=== PATIENT | female | born 1940 | race Caucasian/White ===

== ENCOUNTER 2018-02-27 09:32 | Outpatient (CLI) | payer MEDICARE, MEDICAID ==
--- NOTE | 2018-02-27 11:55 | CT ---
CTA OF THE CHEST WITH CONTRAST CTA OF THE ABDOMEN WITH CONTRAST: Comparison: 11-21-12 History: Bilateral lower extremity weakness, numbness, and swelling for 6-8 months, getting worse. Pe ripheral vascular disease. Technique: Multiple contiguous axial images were obtained in a CTA of the chest and abdomen with cont rast. 3D sagittal and coronal MIP reformats were performed of the chest and abdomen. FINDINGS: Emphysematous changes are seen in the lungs. There is a small right pleural effusion and a trace left pleural effusion with adjacent atelectasis. No suspicious pulmonary masses are seen. Gallstones are seen in the gallbladder which also has a mildly thickened wall. The liver has a nodula r contour which may be secondary to cirrhosis. The spleen is enlarged measuring approximately 15.4 cm in length. There are hyper enhancing lesions in the central liver and right lobe of the liver which may represent small areas of JEREMY. These lesions are not definitely seen on the prior exam. A follow up CT of the abdomen per liver mass protocol in 3 months is recommended to ensure stability. However, liver masses cannot be entirely excluded. The kidneys, adrenal glands, and pancreas are unremarkable . No free air, free fluid, or stranding changes are seen in the abdomen. Visualized large and small b owel are unremarkable. No abdominal adenopathy is seen. The heart is normal in size without focal cardiac abnormality. No hilar or mediastinal lymph adenopat hy are seen. The aorta is normal in caliber. This includes the thoracic and abdominal aorta. There is no evidence of an aortic dissection. Diffuse atherosclerotic disease is seen in the descending aorta. The subclav aquilino arteries and common carotid arteries are patent. The celiac trunk, SMA, and ENZO are patent withou t significant atherosclerotic disease. There is a single renal artery on each side without significan t atherosclerotic disease. The chest and abdominal wall soft tissues are unremarkable. Degenerative changes are seen in the spin e. IMPRESSION: 1. No evidence of aneurysmal dilatation of the thoracic or abdominal aorta and no evidence of dissect ion of the aorta. 2. Moderate diffuse atherosclerotic disease within the descending aorta. 3. Cholelithiasis. 4. Bilateral pleural effusions. 5. Hyper enhancing region of the liver may represent areas of JEREMY, but liver masses cannot be entire ly excluded. POS: [facility]
[2018-02-27] MEDS ORDERED: Iopamidol 370 76% 100 ML VIAL ONE (14:46)
== END 2018-02-27 09:33 | disposition home or self-care (01) ==
LOC: CT 09:32
PROVIDERS: ATTEND Internal Medicine Cardiovascular Disease
DX: I73.9 Peripheral vascular disease, unspecified (principal); R09.89 Other specified symptoms and signs involving the circulatory and respiratory systems; I70.0 Atherosclerosis of aorta; K80.20 Calculus of gallbladder without cholecystitis without obstruction; J90 Pleural effusion, not elsewhere classified
CPT/HCPCS: 71275; 74175

== ENCOUNTER 2018-07-18 10:59 | Outpatient (CLI) | payer MEDICARE, MEDICAID ==
--- NOTE | 2018-07-18 13:21 | RAD ---
CHEST TWO VIEWS: History: Chest pain. Comparison: 2010 FINDINGS: There is an abnormal nodular density projecting over the right lower lobe. Chronic interstitial lung markers in the lung bases. IMPRESSION: Abnormal nodular density projecting in the right lower lobe. Recommend further characterization with CT of the chest. Abdomen and pelvic CT may also be beneficial given the patient's history of cirrhosi s. POS: [facility]
== END 2018-07-18 11:00 | disposition home or self-care (01) ==
LOC: RAD 10:59
PROVIDERS: ATTEND Internal Medicine Pulmonary Disease
DX: R06.00 Dyspnea, unspecified (principal); J98.4 Other disorders of lung
CPT/HCPCS: 71046

== ENCOUNTER 2018-08-09 11:57 | Outpatient (CLI) | payer MEDICARE, MEDICAID | END 2018-08-09 11:58 | disposition home or self-care (01) | LOC: BICMAMMO 11:57 | PROVIDERS: ATTEND Internal Medicine Geriatric Medicine | DX: Z12.31 Encounter for screening mammogram for malignant neoplasm of breast (principal); R92.1 Mammographic calcification found on diagnostic imaging of breast | CPT/HCPCS: 77063; 77067 ==

== ENCOUNTER 2018-08-31 07:28 | Outpatient (CLI) | payer MEDICARE, MEDICAID ==
--- NOTE | 2018-08-31 10:12 | CT ---
CT OF THE ABDOMEN WITH AND WITHOUT CONTRAST: INDICATION: History of cirrhosis of the liver with abnormality seen on a CTA examination from [facility] . TECHNIQUE: Multiple CT images were obtained of the abdomen with and without contrast utilizing a liver mass prot ocol. Comparisons are made with a prior CTA of the chest and abdomen dated 02/27/2018. FINDINGS: There is hyperenhancing mass within segment 5 of the right hepatic lobe measuring 2.1 cm. There is a n additional hyperenhancing right hepatic lobe mass measuring 2.1 cm on image 19 of series 4. Findin gs are suspicious for hepatocellular malignancy. There are enlarged lymph nodes within the periportal and portocaval regions. One of the largest is s een within the portocaval region measuring 1.8 cm. There are numerous gallstones of the gallbladder. There is splenomegaly present. There are mild par aesophageal varicosities. There is recanalization of the umbilical vein. There is mild ascites. Th ere are severe vascular calcifications of the abdominopelvic vasculature. Adrenal glands and kidneys appear within normal limits. There is a small bilateral pleural effusion, left greater than right with bibasilar atelectasis. There is scattered degenerative and osteoarthritic change. IMPRESSION: 1. Hyperenhancing lesions of the right hepatic lobe and background of cirrhosis is highly suspicious for hepatocellular carcinoma. These are new from a comparison examination dated 03/21/2017 from [facility]. There are enlarged lymph nodes within the portocaval and periportal region wh ich appear stable in size from the 03/21/2017 examination and may have been related to cirrhosis. Turner lina, a component of malignant lymphadenopathy cannot be entirely excluded. 2. Findings of portal hypertension. 3. Cholelithiasis. 4. Small pleural effusions, left greater than right. POS: [facility]
== END 2018-08-31 07:29 | disposition home or self-care (01) ==
LOC: BICCT 07:28
PROVIDERS: ATTEND Internal Medicine Gastroenterology
DX: K74.60 Unspecified cirrhosis of liver (principal); R39.89 Other symptoms and signs involving the genitourinary system; I25.10 Atherosclerotic heart disease of native coronary artery without angina pectoris; K80.20 Calculus of gallbladder without cholecystitis without obstruction; J90 Pleural effusion, not elsewhere classified; K76.6 Portal hypertension; K76.9 Liver disease, unspecified
CPT/HCPCS: 74170

== ENCOUNTER 2018-12-05 11:58 | Inpatient (IN) | payer MEDICARE, MEDICAID ==
[2018-12-05] MEDS ORDERED: Heparin 10,000 UNITS/ 10 ML VIAL ONE (12:00)
[2018-12-05 13:52] LABS: ALT (SGPT) 52 U/L (8-55); AST (SGOT) 49 U/L (5-34); Albumin 1.8 g/dL (3.4-4.8); Alkaline Phosphatase 147 U/L (40-150); Anion Gap 19 mmol/L (10-20); BUN (Urea Nitrogen) 54 mg/dL (9.8-20.1); Calc. Creatinine Clearance 17 mL/min (70-130); Calcium 8.5 mg/dL (7.8-10.44); Carbon Dioxide 13 mmol/L (23-31); Chloride 92 mmol/L (98-107); Estimated GFR-MDRD 18; Globulin 3.5 g/dL (2.4-3.5); Glucose 77 mg/dL (83-110); Potassium 6.2 mmol/L (3.5-5.1); Protein, Total 5.3 g/dL (6.0-8.3)
[2018-12-05 13:57] LABS: Sodium 118 mmol/L (136-145)
[2018-12-05 14:17] LABS: Hemoglobin 13.1 g/dL (12.0-16.0); Mean Corpuscular HGB CONC 32.3 g/dL (32.0-36.0); Mean Corpuscular Hemoglobin 33.5 pg (27.0-31.0); Mean Platelet Volume 7.6 fL (7.4-10.4); Platelet Count 66 thou/uL (130-400); RBC Distribution Width 16.4 % (11.5-14.5); Red Blood Cell (RBC) Count 3.91 mill/uL (4.20-5.40); White Blood Cell (WBC) Count 23.4 thou/uL (4.8-10.8)
[2018-12-05 14:18] LABS: Anisocytosis SLIGHT = 6-15 cells (100X) (0-5/hpf); Band 29 % (5-11); Lymphocytes 3 % (21-51); MDiff Complete? YES; Macrocytosis SLIGHT = 6-15 cells (100X) (0-5/hpf); Monocytes 4 % (0-10); Neutrophil 64 % (42-75); Platelet Morphology Comment Appears Decreased; Polychromasia SLIGHT = 2-3 cells (100X) (0-2/hpf); Toxic Granulation SLIGHT; Vacuoles SLIGHT
[2018-12-05] MEDS ORDERED: Morphine 4 MG/ML VIAL SLOW IVP PRN ×2 (14:20→20:02)
[2018-12-05] MEDS ORDERED: Ondansetron ODT 8 MG TAB PO PRN (14:23)
[2018-12-05] MEDS ORDERED: Prochlorperazine Maleate 5 MG TAB PO PRN (14:39)
[2018-12-05] MEDS ORDERED: Morphine ER 15 MG TAB PO PRN (15:43)
[2018-12-05] MEDS: Cefepime 1 GM in Sodium Chloride 0.9% 100 ML IVPB SCH (16:12)
[2018-12-05] MEDS: Sodium Chloride 0.9% 1,000 ML IV SCH (16:14)
[2018-12-05 16:16] VITALS: BP 101/58
[2018-12-05] MEDS ORDERED: Vancomycin HCl 1 GM in Premix Bag 1 BAG IVPB SCH (17:00)
--- NOTE | 2018-12-05 17:11 | RAD ---
FRONTAL VIEW CHEST: Date: 12/05/18 INDICATION: Hypoxemia. FINDINGS: There is abnormal left basilar density. Diffuse bilateral interstitial opacities are present. There i s enlargement of the cardiac silhouette and prominence of the pulmonary vasculature. IMPRESSION: 1. Abnormal left basilar density, which may be on the basis of pleural fluid with adjacent atelectas is and/or pneumonia. 2. Probable bilateral interstitial edema related to CHF. Recommend imaging follow-up with 2 view chest series to confirm resolution of findings. POS: [facility]
[2018-12-05] MEDS ORDERED: Lidocaine 1% (PF) 30 ML VIAL ONE (17:19)
[2018-12-05] MEDS ORDERED: Lidocaine 1% w/Epinephrine 1:100K 20 ML VIAL ONE (17:20)
[2018-12-05] MEDS ORDERED: Sodium Bicarb 50 MEQ/50 ML VIAL IVP SCH ×2 (17:30→18:30)
--- NOTE | 2018-12-05 17:32 | CON ---
DATE OF CONSULTATION: 12/05/2018 TYPE OF CONSULTATION: Nephrology consultation REASON FOR CONSULTATION: Hyperkalemia, cirrhosis, and acute renal failure. HISTORY OF PRESENT ILLNESS: An 78-year-old female, who is being treated for hepatocellular carcinoma with no records available, presented to the hospital hypotensive and in sepsis. The patient was hyperkalemic yesterday as well, has had acute renal failure, which has progressed today, so I was consulted. The patient initially was reported to be possibly undergoing hospice, but at this time, the patient wants everything done and wants to live for a very long time. The patient is a very poor historian. PAST MEDICAL HISTORY: Significant for rheumatoid arthritis, history of hepatocellular carcinoma, history of cirrhosis, history of bilateral pleural effusions with possible mets, chronic hyponatremia. SOCIAL HISTORY: No alcohol or drug use. FAMILY HISTORY: Negative for ESRD. ALLERGIES: REVIEWED. HOME MEDICATIONS: List reviewed. REVIEW OF SYSTEMS: Unreliable. PHYSICAL EXAMINATION: GENERAL: The patient is awake and alert. VITAL SIGNS: Afebrile. Pulse 90, breathing 16, blood pressure was 100/60. GENERAL APPEARANCE AND MENTAL STATUS: Fair. HEAD/NECK: Normocephalic. Atraumatic. EYES: EOMI. No deformity. EARS: Clear. No ulcers. NOSE: Intact. No lesions. MOUTH: Clear. No discharge. THROAT: Clear. No exudate. LUNGS: Clear. No crackles. CARDIAC: S1, S2. No rub. ABDOMEN: Benign. Bowel sounds positive. GENITALIA/RECTUM: Elizalde absent. BACK/EXTREMITIES: Edema 0+. NEUROLOGICAL: Alert and motor intact. SKIN: LYMPHATICS: The patient is on oxygen. LABORATORY DATA: Lab shows sodium 119, creatinine 2.7. IMPRESSION: 1. Acute kidney injury with chronic kidney disease due to hypotension and possible sepsis. Recommend gentle hydration. 2. Hyperkalemia. Plan dialysis. 3. Metabolic acidosis. Plan dialysis. Overall prognosis is poor. The patient does not have any family members available. Job ID: [id number]
[2018-12-05] MEDS ORDERED: Sodium Chloride 0.9% 250 ML IV SCH (18:00)
[2018-12-05] MEDS ORDERED: Calcium Gluc 4.6 MEQ/10 ML (100 MG/ML) SLOW IVP SCH (18:30)
[2018-12-05] MEDS ORDERED: Sodium Bicarb 50 MEQ/50 ML Abboject 8.4% SYRINGE IVP SCH (19:00)
[2018-12-05] MEDS ORDERED: Norepinephrine 8 MG/0.9% NS 250 ML ONE (19:09)
[2018-12-05 19:24] LABS: HBSAg Index 0.18 S/CO (0-0.99); Hep B Surf Ag Non-Reactive S/CO (NonReactive)
[2018-12-05 19:25] LABS: Free T4 (Free Thyroxine) 0.74 ng/dL (0.70-1.48); Thyroid Stimulating Hormone 5.8796 uIU/mL (0.35-4.94)
[2018-12-05] MEDS ORDERED: Sodium Chloride 0.9% 250 ML 250 ML IVPB SCH (19:30)
--- NOTE | 2018-12-05 21:15 | CON ---
DATE OF CONSULTATION: 12/05/2018 ADMITTING AND MANAGING PHYSICIAN: Maricel Flanagan MD, Oncology Service. PURPOSE OF CONSULTATION: Medical management. CHIEF COMPLAINT: 1. Shortness of breath. 2. Generalized weakness. 3. Jaundice. HISTORY OF PRESENT ILLNESS: The patient is an 78-year-old female, who was recently diagnosed with hepatocellular carcinoma and was started on new medications, lenvatinib on the 24 of November. The patient was seen by Dr. Flanagan, I believe yesterday and today, she sent her for direct admission for above-mentioned problems. The patient was found to be hyponatremic and we were consulted for medical management of her medical problems. Also, she has been taking some Tylenol No.4 and tramadol which can contribute to hepatotoxicity. She denies any fever or cough. She denies any chest pain. PAST MEDICAL HISTORY: 1. Hepatocellular carcinoma. 2. Arthritis. 3. Chronic obstructive pulmonary disease. 4. Liver disease. 5. Hemorrhoids. PAST SURGICAL HISTORY: 1. Tubal ligation. 2. Selverstone clamp for aneurysm. SOCIAL HISTORY: She is a former smoker. She denies any illicit drug use. She does not use much of alcohol. Surrogate decision maker, Malka Ramos, her daughter. ALLERGIES: NONE. CURRENT MEDICATIONS: 1. Ciclopirox 0.77% topical cream. 2. Compazine 10 mg tablets. 3. Furosemide 20 mg once a day. 4. Chloroquine 200 mg tablets. 5. Lenvatinib 4 mg capsules. 6. Zofran 8 mg p.r.n. 7. Spironolactone 50 mg tablet. 8. Symbicort 160/4.5. FAMILY HISTORY: Noncontributory to this case. REVIEW OF SYSTEMS: No night sweats or weight loss. Positive weakness. Positive fatigue. Positive bilateral lower extremity. Negative for chest pain or palpitations. Negative for diarrhea or bleeding. Negative for rashes or itching. Positive for bruising. Negative for anxiety or depression. Negative for change in vision or eye irritation. Positive for ringing in the ears. Positive for shortness of breath as above. PHYSICAL EXAMINATION: VITAL SIGNS: Blood pressure is initially 66/41, temperature is 97.7, pulse is 91, respiratory rate is 20, and O2 saturation is 84 on room air. The patient is placed on 2 L of nasal cannula and she was given normal saline bolus for her hypotension. HEENT: Head is atraumatic and normocephalic. Sclerae anicteric. Pupils are responding to light properly. Conjunctivae are pale. Oral mucosa is dry. NECK: Supple. LUNGS: Breath sounds diminished at both bases. No wheezing. HEART: S1 and S2 somewhat distant. No S3. No S4. ABDOMEN: Distended, mildly tender to touch in the epigastric area. I think I palpate liver, which is somewhat enlarged and tender to palpation. EXTREMITIES: 2+ peripheral edema similar bilaterally in both lower extremities. NEUROLOGICAL: She follows my commands. She moves her all 4 extremities. There is no any motor deficits. NEUROLOGIC: Nonfocal. LABORATORY DATA: White count of 20.3, hemoglobin 13.1, hematocrit 39.5, MCV 100.6, platelets 61,000. No images since this is a direct admission. IMPRESSION: 1. Fatigue, generalized weakness, most likely related to fluid retention. Apparently reviewed the message from the lab that sodium is down to 118, as a preliminary reading. 2. Hyperbilirubinemia in the setting of hepatocellular carcinoma. 3. Hepatocellular carcinoma, multifocal. 4. Elevated white count of unclear etiology at this point. 5. Thrombocytopenia, again this could be related to her current chemotherapy. RECOMMENDATION: Followup with full panel of CBC, procalcitonin to find out more about the current status. We gave her a bolus of normal saline. Her blood pressure is doing significantly better now. Also, she showed some hypoxemia. We will obtain chest x-ray and do further diagnostic workup on her condition. We will restrict her fluid intake to 1000 mL per 24 hours. We will get nephrology consultation and the case was discussed with Dr. Conrad. We will start her on cefepime for possible sepsis. We will obtain urinalysis and will follow up with you. Job ID: [id number]
[2018-12-05 23:24] LABS: Lactic Acid 4.4 mmol/L (0.5-2.2)
[2018-12-05 23:49] LABS: Potassium 4.6 mmol/L (3.5-5.1)
[2018-12-05 23:50] LABS: Osmolality, Urine 393 mOsm/kg (300-900)
[2018-12-06 00:05] LABS: Potassium, Urine 49.8 mmol/L; Sodium, Urine Less than 20 mmol/L (Not Available)
--- NOTE | 2018-12-06 00:54 | OP ---
DATE OF PROCEDURE: 12/05/2018 PREOPERATIVE DIAGNOSES: Hepatocellular carcinoma, end-stage hepatic disease, acute renal failure, hyperkalemia, severe acidosis. POSTOPERATIVE DIAGNOSES: Hepatocellular carcinoma, end-stage hepatic disease, acute renal failure, hyperkalemia, severe acidosis. PROCEDURE: Right femoral vein triple-lumen catheter, large bore (Trialysis catheter was desired but the hospital did not have these in stock in the ER nor in ICU). ANESTHESIA: 1% xylocaine. DESCRIPTION OF PROCEDURE: The patient at bedside. Seldinger technique was used to place the large-bore triple-lumen catheter for dialysis access. The patient tolerated the procedure well. Catheter was secured with 2 interrupted sutures of 3-0 silk. J-wire removed. Each port aspirated blood, flushed with heparinized saline solution. Sterile dressings applied. Job ID: [id number]
--- NOTE | 2018-12-06 01:19 | HP ---
HISTORY OF PRESENT ILLNESS: Nalini Lima is an 78-year-old female with hepatocellular carcinoma, admitted today for deteriorating renal function and Dr. Conrad was consulted. The patient has been on palliative hospice care, but with acute renal failure and hyperkalemia. Family has decided to proceed with a dialysis trial. She hopes to interact with family socially for some upcoming events. She has history of cirrhosis, bilateral pleural effusions, metastatic disease, and hyponatremia. The patient has been hypotensive earlier. She is a DNR. SOCIAL HISTORY: Tobacco, none. Alcohol, none. FAMILY HISTORY: Negative. ALLERGIES: NONE. MEDICATIONS: 1. Compazine. 2. Zofran. 3. Lenvima. 4. Lasix. 5. Plaquenil. 6. Spironolactone. PAST SURGICAL HISTORY: Cataract surgery. PAST MEDICAL PROBLEMS,: Osteoporosis, rheumatoid arthritis. She did use tobacco in the past, but cessation over 2 years ago. PHYSICAL EXAMINATION: VITAL SIGNS: 5 foot, 232 pounds, 24 BMI, 97.7, 101/58, 87, 18, blood pressure 66/41 earlier. HEENT: The patient is jaundiced. Sclerae anicteric. CARDIAC: Regular rate and rhythm. ABDOMEN: Soft, distended, possible fluid wave. EXTREMITIES: Unremarkable. Stronger left femoral pulse than right. PHYSICAL EXAMINATION: Bilirubin 8, AST and ALT are 49 and 52, alkaline phosphatase 147. Sodium 118, cortisol 32. White count 23, hemoglobin 13. ASSESSMENT AND PLAN: Hepatocellular carcinoma with renal failure with potassium 6.2, BUN and creatinine are 54 and 2.51, GFR 18. We will plan placement of femoral dialysis catheter. If they decide to have a cuffed tunneled dialysis catheter, we will plan that tomorrow or the next day or two. Overall prognosis is poor. The patient is severely acidotic with CO2 of 13. Job ID: [id number]
[2018-12-06 01:22] LABS: Lactic Acid 4.1 mmol/L (0.5-2.2)
[2018-12-06] MEDS: Sodium Chloride 0.9% 1,000 ML IV SCH ×2 (01:53→16:49)
[2018-12-06] MEDS: Norepinephrine 8 MG/250 ML BAG IVPB PRN ×2 (03:13→07:53)
[2018-12-06] MEDS: Cefepime 1 GM in Sodium Chloride 0.9% 100 ML IVPB SCH (03:13)
--- NOTE | 2018-12-06 03:14 | CON ---
DATE OF CONSULTATION: 12/05/2018 This is a 35 minutes critical care time. CONSULTING PHYSICIAN: Don Rothman MD REASON FOR CONSULTATION: Hypotension. HISTORY OF PRESENT ILLNESS: An 78-year-old female who is currently being treated by Dr. Falnagan for hepatocellular carcinoma. She came to the hospital today for hypotension and presumed sepsis. She is a very poor historian and cannot tell me when the last time she got chemotherapy. She was apparently hyperkalemic. At the time I am seeing her, she is starting hemodialysis through a right femoral vein catheter. PAST MEDICAL HISTORY: 1. Hepatocellular carcinoma. 2. Cirrhosis. 3. Bilateral effusions. 4. Chronic hyponatremia. 5. Rheumatoid arthritis. PAST SURGICAL HISTORY: She has a MediPort. SOCIAL HISTORY: Nonsmoker. Does not consume alcohol. FAMILY MEDICAL HISTORY: Unremarkable. ALLERGIES: ASPIRIN. REVIEW OF SYSTEMS: The patient currently will not give me anything in the way of information. PHYSICAL EXAMINATION: VITAL SIGNS: Blood pressure is running about 137/38, pulse 100, respirations 18, O2 saturation 98%. GENERAL: This is an ill-appearing female who appears in no overt respiratory distress this time. HEENT: Her sclerae are icteric. Face has generalized jaundice. CARDIOVASCULAR: S1 and S2. Tachycardic. LUNGS: Fairly clear anteriorly. ABDOMEN: Slightly tender to palpation in the mid epigastric region. EXTREMITIES: Jaundiced. LABORATORY DATA: Sodium 118, potassium 6.2, chloride 92, CO2 of 13, BUN 54, creatinine 2.5, glucose 77, lactate 8.2, albumin 1.8, TSH 5.8, total bilirubin 8.0. White blood cell count 23.4, hematocrit 40.6, and platelet count 66. Hepatitis B surface antigen test was negative. A chest x-ray demonstrates diffuse interstitial type changes. There may be a small left pleural effusion. ASSESSMENT: 1. Acute kidney injury with hyperkalemia. 2. Sepsis. 3. Hyponatremia. 4. Hepatocellular carcinoma. 5. Severe metabolic acidosis. PLAN: The patient is currently on dialysis for the hyperkalemia and acidosis. IV antibiotics have been written for her. She needs some back pain controlled with morphine as needed. I think we need to focus more on comfort. She does have a DNAR order on the chart. I think her prognosis is extremely poor, even with aggressive intervention. Job ID: [id number]
[2018-12-06 04:56] VITALS: TEMP 98.5
[2018-12-06 06:14] LABS: ALT (SGPT) 52 U/L (8-55); AST (SGOT) 56 U/L (5-34); Albumin 1.7 g/dL (3.4-4.8); Alkaline Phosphatase 169 U/L (40-150); Anion Gap 14 mmol/L (10-20); BUN (Urea Nitrogen) 34 mg/dL (9.8-20.1); Bilirubin, Total 8.7 mg/dL (0.2-1.2); Calc. Creatinine Clearance 30 mL/min (70-130); Carbon Dioxide 21 mmol/L (23-31); Chloride 95 mmol/L (98-107); Estimated GFR-MDRD 36; Globulin 3.5 g/dL (2.4-3.5); Glucose 68 mg/dL (83-110); Potassium 5.3 mmol/L (3.5-5.1); Protein, Total 5.2 g/dL (6.0-8.3); Sodium 125 mmol/L (136-145)
[2018-12-06 06:24] LABS: Band 13 % (5-11); Hemoglobin 14.6 g/dL (12.0-16.0); Lymphocytes 4 % (21-51); MDiff Complete? YES; Mean Corpuscular HGB CONC 34.1 g/dL (32.0-36.0); Mean Corpuscular Hemoglobin 34.9 pg (27.0-31.0); Mean Platelet Volume 9.1 fL (7.4-10.4); Monocytes 1 % (0-10); Neutrophil 82 % (42-75); Nucleated RBC 1 % (0); Platelet Count 45 thou/uL (130-400); Platelet Morphology Comment Appears Decreased; RBC Distribution Width 16.8 % (11.5-14.5); RBC Morphology Normal; White Blood Cell (WBC) Count 20.1 thou/uL (4.8-10.8)
--- NOTE | 2018-12-06 09:23 | PRG ---
DATE OF SERVICE: 12/06/2018 SUBJECTIVE: This patient was seen in the ICU this morning. She appears quite miserable from pain. She is requiring Levophed at about 35 mcg/minute to sustain. OBJECTIVE: VITAL SIGNS: Blood pressure of 82/47, pulse 119, O2 sats 98%. HEENT: Generalized jaundice is apparent throughout her eyes and skin. She has some bleeding in her mouth. LUNGS: Her breath sounds are clear CARDIAC: Tachycardic. ABDOMEN: Distended. EXTREMITIES: No edema. LABORATORY DATA: Sodium 125, potassium 5.3, chloride 95, CO2 of 21, BUN 34, creatinine 1.4, glucose 68. White blood cell count 20, hematocrit 43.9, and platelet count 45. ASSESSMENT: 1. Hepatocellular carcinoma. 2. Acute renal failure. 3. Sepsis versus overt liver failure from hepatocellular carcinoma. 4. Severe metabolic acidosis. PLAN: I really think the focus should be on comfort as I do not think she is liable to improve with current intervention. Job ID: [id number]
--- NOTE | 2018-12-06 09:26 | ULT ---
ABDOMINAL ULTRASOUND COMPLETE: HISTORY: Hepatocellular carcinoma, hyponatremia. COMPARISON: 08/31/[address] FINDINGS: Very abnormal coarse echogenicity throughout the liver with contour nodularity, evidence for cirrhosi s. Poorly circumscribed slightly hyperechoic mass measuring approximately 1.3 x 2.6 cm in the right lobe of the liver which certainly could represent hepatocellular carcinoma. Numerous shadowing galls tones noted in the gallbladder with gallbladder wall thickening up to 0.7 cm. Evidence for ascites a nd bilateral pleural effusions. No significant intrahepatic ductal dilatation or common duct dilatat ion. Visualized pancreas, IVC, and aorta are unremarkable. Spleen is borderline in size. The kidne ys show no renal hydronephrosis or perinephric process. IMPRESSION: Markedly abnormal liver echogenicity with nodularity and at least 1 poorly circumscribed right lobe o f liver mass, evidence for sclerosis and probable hepatocellular carcinoma. Bilateral pleural effusi ons and minimal ascites. Multiple gallstones with abnormal gallbladder wall thickening, but no ducta l dilatation. POS: [facility]
--- NOTE | 2018-12-06 10:47 | PRG ---
DATE OF SERVICE: 12/06/2018 SUBJECTIVE: An 78-year-old lady being seen for acute kidney injury urgent hemodialysis due to hyperkalemia. The patient remains confused and is very feeble. OBJECTIVE: See above. CONSTITUTIONAL: Awake, alert, in mild to moderate acute distress. VITAL SIGNS: Afebrile. Pulse 80, breathing 16, blood pressure 82/47. GENERAL APPEARANCE AND MENTAL STATUS: Fair. HEAD/NECK: Normocephalic. Atraumatic. EYES: EOMI. No deformity. EARS: Clear. No ulcers. NOSE: Intact. No lesions. MOUTH: Clear. No discharge. THROAT: Clear. No exudate. LUNGS: Clear. No crackles. CARDIAC: S1, S2. No rub. ABDOMEN: Benign. Bowel sounds positive. GENITALIA/RECTUM: Elizalde absent. BACK/EXTREMITIES: Edema 0+. NEUROLOGICAL: The patient is confused. SKIN: LYMPHATICS: LABORATORY DATA: Labs show potassium 5.3, creatinine 1.4. ASSESSMENT AND PLAN: 1. Acute kidney injury with severe metabolic acidosis. The patient remains anuric. Discussed risks versus benefits of renal replacement therapy in the setting of severe hypotension and sepsis. The family opted out not to dialysis after one palliative dialysis treatment for hyperkalemia and acidosis. 2. Hypotension and sepsis. 3. Anemia, stable. 4. Medication based on glomerular filtration rate appropriate. I will sign off on this patient. Please reconsult as needed. Prognosis is very poor. Job ID: [id number]
[2018-12-06 12:15] VITALS: BMI 24.6
[2018-12-06] MEDS ORDERED: Albumin 25% 25 GM/100 ML BOT IVPB SCH (12:24)
[2018-12-06] MEDS ORDERED: Morphine 10 MG/ML VIAL SLOW IVP PRN (12:43)
[2018-12-06] MEDS ORDERED: Lorazepam 2 MG/ML VIAL SLOW IVP PRN ×2 (12:44)
--- NOTE | 2018-12-06 14:13 | PQF ---
DATE: 12-06-18 ATTN: DR. CHARLI BLAND Please exercise your independent, professional judgment in responding to the clarification form. Clinical indicators are provided on the bottom of this form for your review Please check appropriate box(es): [ ] Sepsis [ ] SIRS due to non-infectious process (please specify etiology) [ ] with organ dysfunction [ ] without organ dysfunction [ ] Severe sepsis with acute organ dysfunction of: (Examples: acute kidney failure, other) [ ] Other diagnosis [ ] Unable to determine In addition, please specify: Present on Admission (POA): [ ] Yes [ ] No [ ] Unable to determine For continuity of documentation, please document condition throughout progress notes and discharge summary. Thank You. CLINICAL INDICATORS - SIGNS / SYMPTOMS / LABS CONSULT NOTE DR. BELTRÁN 12-05-18: BETO WITH HYPERKALEMIA, SEPSIS, HYPONATREMIA, HEPATOCELLULAR CARCINOMA, SEVERE METABOLIC ACIDOSIS PN DR. BLAND 12-05-18: WE WILL START HER ON CEFEPIME FOR POSSIBLE SEPSIS, THROMBOCYTOPENIA CONSULT NOTE DR. ESTRELLA 12-05-18: BETO WITH CKD DUE TO HYPOTENSION AND POSSIBLE SEPSIS. RECOMMEND GENTLE HYDRATION. WBC: 12-05-18: 23.4 12-06-18: 20.1 BANDS: 12-05-18: 29 12-06-18: 13 LACTIC ACID: 12-05-18: 8.2, 3.7, 4.4 12-06-18: 4.1 BP: 12-05-18: 66/41 12-06-18: 87/54, 95/46, 99/48, 73/41, 72/43 HR: 12-06-18: 110, 112, 118, 121, 126, 126 RISK FACTORS: CONSULT NOTE DR. BELTRÁN 12-05-18: BETO WITH HYPERKALEMIA, SEPSIS, HYPONATREMIA, HEPATOCELLULAR CARCINOMA, SEVERE METABOLIC ACIDOSIS PN DR. BLAND 12-05-18: WE WILL START HER ON CEFEPIME FOR POSSIBLE SEPSIS, THROMBOCYTOPENIA ADVANCED AGE TREATMENTS: PN DR. BLAND 12-05-18: WE WILL START HER ON CEFEPIME FOR POSSIBLE SEPSIS, MAR: IVF, MAXIPIME IV, VANCOMYCIN (This form is maintained as a part of the permanent medical record) 2014 [employer]. All Rights Reserved [email or web address] Office: [phone] [facility]
[2018-12-06] MEDS: Morphine 4 MG/ML VIAL SLOW IVP PRN ×2 (16:09→19:28)
--- NOTE | 2018-12-06 16:16 | PRG ---
DATE OF SERVICE: 12/06/2018 SUBJECTIVE: The patient is seen and examined at the bedside. The family is present in the room, her son and the daughter. Yesterday, the patient was transferred to intensive care unit because she was still hypotensive despite of IV fluids and IV antibiotics and she asked Dr. Conrad to have everything done and he offered her a dialysis, so she was dialyzed last night. This morning, she is still hypotensive despite of a high dose of vasopressors and despite of IV fluids. We gave her additional 500 mL of normal saline, but her blood pressure did not improve. OBJECTIVE: VITAL SIGNS: Blood pressure is 74/40, heart rate is in 120s, respiratory rate is 13, O2 saturation is 99% on room air. GENERAL: She is examined and she looks sick. She kind of moans when I listen to her. HEENT: Her sclerae nonicteric. Conjunctivae palish. LUNGS: Breath sounds diminished at both bases. HEART: S1, S2. Tachycardic. No S3. No S4. ABDOMEN: Somewhat distended, but not tender. EXTREMITIES: 2+ peripheral edema similar bilaterally on both lower extremities. LABORATORY DATA: Showed white count of 20.1, hemoglobin of 14.6, hematocrit 42.9, and platelet count is 45,000. Chemistry showed sodium of 125, potassium 5.3, chloride 95, CO2 of 21, BUN 34, creatinine 1.42. Lactic acid 8.2, then 4.4, then 4.1. Total bilirubin 8.7, ALT 169, AST 52, total protein 5.2, albumin 1.7, cortisol 32.1, free T4 0.74, free T3 1.22. Third generation TSH 5.8. IMPRESSION: 1. Sepsis with septic shock, hypotension, lack of response despite of IV fluids, IV antibiotics, and vasopressors. 2. Acute renal failure. 3. Hepatocellular carcinoma. 4. Severe metabolic acidosis. 5. Hyperbilirubinemia secondary to hepatocellular carcinoma. 6. Chronic obstructive pulmonary disease. 7. Thrombocytopenia, most likely related to her current chemotherapy. DISCUSSION: I met with Dr. Conrad and the family members, the daughter and the son and a friend of the patient. We had a long discussion about her poor prognosis, lack of response to treatment and they understand the severity of the problem. They agree to continue supportive care. They requested to see Dr. Flanagan, the primary admitting MD on this case and we will continue current regimen with supportive care with IV vasopressor, IV fluids, and IV antibiotics, but the prognosis is very poor as mentioned above and most likely she will in the next 24 to 48 hours. Job ID: [id number]
--- NOTE | 2018-12-06 16:49 | CON ---
DATE OF CONSULTATION: REASON FOR CONSULT: Hepatocellular carcinoma. HISTORY OF PRESENT ILLNESS: Ms. Lima is an 78-year-old female with multifocal hepatocellular carcinoma. She has been taking lenvatinib. She presented to our clinic yesterday. She had weight loss, weakness, fatigue, back pain and jaundice. She was admitted for further evaluation and treatment. She did have a temporary dialysis catheter placed and received one session of dialysis. Overnight, she continued to decline and is currently on Levophed drip in the ICU. The patient has been complaining overnight of back pain and has been receiving morphine. She also is on antibiotics. The patient is currently obtunded and not arousable. She is a DNR. PAST MEDICAL HISTORY: 1. Hepatocellular carcinoma. 2. Arthritis. 3. COPD. 4. Liver disease and cirrhosis. 5. Hemorrhoids. PAST SURGICAL HISTORY: 1. Tubal ligation. 2. Cerebral aneurysm clamp. ALLERGIES: NO KNOWN DRUG ALLERGIES. HOME MEDICATIONS: 1. Lasix 40 mg daily. 2. Plaquenil daily. 3. Lenvima daily. 4. Spironolactone daily. FAMILY HISTORY: Noncontributory. SOCIAL HISTORY: . No alcohol, tobacco, or illicit drug use. REVIEW OF SYSTEMS: Unable to obtain secondary to decreased mental status. PHYSICAL EXAMINATION: VITAL SIGNS: Temperature 98.5, pulse is 125, respiratory rate 25, BP is 80/41. She is 96% on room air. GENERAL: Ill-appearing female, in no acute distress. CV: Tachycardia. LUNGS: Clear. ABDOMEN: Soft. EXTREMITIES: There is no clubbing, cyanosis, or edema. SKIN: She is jaundiced. NEUROLOGIC: Obtunded. PERTINENT LABS AND X-RAYS: Current WBCs are 20.1, hemoglobin 14.6, hematocrit 42.9, platelet count is 45,000. Sodium is 125, potassium 5.3, chloride 95, CO2 is 21, BUN is 34, creatinine 1.42, lactic acid is 4.1, calcium 8.0, bilirubin is 8.7, AST is 56, ALT is 52, alkaline phosphatase is 169, serum total protein is 5.2, albumin 1.7, globulin 3.5. Abdominal ultrasound shows abnormal liver consistent with hepatocellular carcinoma. ASSESSMENT: 1. Hepatocellular carcinoma. 2. Acute renal failure. 3. Hypotension. 4. Pain. DISCUSSION: The patient is a DNR. Comfort care was discussed with family and they agree. They would like to keep her comfortable. She is on a Levophed drip for blood pressure support, which will remain on. No further titration per family's request. We will continue IV fluids and morphine for pain. No further dialysis. Dr. Flanagan will see the patient and family today. The patient is unlikely to survive the day. Job ID: [id number]
--- NOTE | 2018-12-30 14:03 | DIS ---
DATE OF ADMISSION: 12/05/2018 DATE OF DISCHARGE: 12/06/2018 DISCHARGE SUMMARY/ NOTE DATE OF AND DISCHARGE: December 06, 2018. HOSPITAL COURSE: Ms. Lima is an 78-year-old female, who presented to the emergency room with hyponatremia, sepsis, and progressive hepatocellular carcinoma with cirrhosis. Initially, she opted for dialysis, but her mental status declined, and eventually, she was made a DNR. She did not undergo further life-saving measures, and after multiple discussions with the family, she was changed to comfort measures only. She was taken off blood pressure support, and eventually, peacefully of sepsis and hypotension. I was at the bedside prior to her with the family. All their questions were answered, and the patient was comfortable. Job ID: [id number]
--- NOTE | 2019-01-05 12:59 | PQF ---
TERRENCE LANCE ERIN E MD [id number] CLINICAL DOCUMENTATION CLARIFICATION FORM: POST DISCHARGE DATE: 01/05/2019 ATTN: Dr. Flanagan Please exercise your independent, professional judgment in responding to the clarification form. Clinical indicators are provided on the bottom of this form for your review Please check appropriate box(s): [ ] Encephalopathy: Type: [ x ] Acute [ ] Subacute [ ] Chronic Etiology: [ ] Metabolic [ ] Toxic [ x] Hepatic with Coma [ ] Hepatic w/o Coma [ ] Septic [ ] Transient Alteration of Awareness [ ] Other diagnosis (please specify) [ ] Unable to determine In addition, please specify: Present on Admission (POA): [x ] Yes [ ] No [ ] Unable to determine For continuity of documentation, please document condition throughout progress notes and discharge summary. Thank You. CLINICAL INDICATORS - SIGNS / SYMPTOMS / LABS 1- consult (Byron): obtunded; unable to obtain d/t decreased mentation. -16 Dietary consult: Pt is noted to be confused at this time. Per PN's: Severe sepsis with septic shock. Hepatocellular carcinoma. RISK FACTORS -16 (Lorna): Sepsis w/ septic shock; hypotension; acute renal failure; hepatocellular carcinoma; severe metabolic acidosis TREATMENTS: Per 12/06 consult (Byron): Patient is DNR. Comfort care. Levophed drip. IV fluids. Morphine for pain. (This form is maintained as a part of the permanent medical record) 2014 [employer] All Rights Reserved [email or web address]
== END 2018-12-06 21:08 | disposition expired | DRG 871 ==
LOC: T4-A 11:58 → CCU 18:31 → ONC 12-06 18:05
PROVIDERS: ADMIT Internal Medicine; ATTEND Internal Medicine
PROC: 5A1D70Z Performance of Urinary Filtration, Intermittent, Less than 6 Hours Per Day (ICD-10-PCS; principal; 2018-12-05)
PROC: 06HM33Z Insertion of Infusion Device into Right Femoral Vein, Percutaneous Approach (ICD-10-PCS; 2018-12-05)
PROC: 3E033XZ Introduction of Vasopressor into Peripheral Vein, Percutaneous Approach (ICD-10-PCS; 2018-12-05)
DX: A41.9 Sepsis, unspecified organism (principal); R65.21 Severe sepsis with septic shock; K72.01 Acute and subacute hepatic failure with coma; N17.9 Acute kidney failure, unspecified; C22.0 Liver cell carcinoma; E87.2 Acidosis; E87.1 Hypo-osmolality and hyponatremia; C79.9 Secondary malignant neoplasm of unspecified site; Z66 Do not resuscitate; Z51.5 Encounter for palliative care; I95.9 Hypotension, unspecified; E87.5 Hyperkalemia; J44.9 Chronic obstructive pulmonary disease, unspecified; D69.59 Other secondary thrombocytopenia; M06.9 Rheumatoid arthritis, unspecified; K74.60 Unspecified cirrhosis of liver; M81.0 Age-related osteoporosis without current pathological fracture; T45.1X5A Adverse effect of antineoplastic and immunosuppressive drugs, initial encounter; K72.90 Hepatic failure, unspecified without coma; D63.0 Anemia in neoplastic disease; Z87.891 Personal history of nicotine dependence; Z79.899 Other long term (current) drug therapy; Z95.828 Presence of other vascular implants and grafts
CPT/HCPCS: 36415; 71045; 76700; 80053; 82533; 82570; 83605; 83930; 83935; 84133; 84300; 84439; 84443; 84481; 85025; 87040; 87077; 87086; 87186; 87340; 90935; G0257; J0692; J1642; J1644; J2001; J2060; J2270; J3370; J7050